=== PATIENT | male | born 1955 ===

== ENCOUNTER 2021-05-28 06:53 | Day surgery (SDC) | payer OTHER ==
[~2021-05-28 06:53] MED LIST: ADLT ASA LOW81 MG PO; ATORVASTATIN CA40 MG PO; CLARITIN10 M2 PO; LISINOPRIL5 MG PO; METFORMIN500 M2 PO; SEMGLEE SC; SYNTHROID25 MCG PO
[2021-05-28 08:57] VITALS: BP 123/85
== END 2021-05-28 09:10 | DRG 385 ==
LOC: ORM 06:53
PROVIDERS: ATTEND Surgery
PROC: 0DBN8ZX Excision of Sigmoid Colon, Via Natural or Artificial Opening Endoscopic, Diagnostic (ICD-10-PCS; principal; 2021-05-28)
PROC: 0DBL8ZX Excision of Transverse Colon, Via Natural or Artificial Opening Endoscopic, Diagnostic (ICD-10-PCS; 2021-05-28)
PROC: 0DB48ZX Excision of Esophagogastric Junction, Via Natural or Artificial Opening Endoscopic, Diagnostic (ICD-10-PCS; 2021-05-28)
DX: K50.111 Crohn's disease of large intestine with rectal bleeding (principal); K29.81 Duodenitis with bleeding; K63.5 Polyp of colon; K22.70 Barrett's esophagus without dysplasia; E78.5 Hyperlipidemia, unspecified